=== PATIENT | male | born 1990 | race Caucasian/White ===

== ENCOUNTER → 2018-02-08 17:51 | Outpatient (CLI) | payer OTHER, SELFPAY ==
[2018-02-08 20:20] LABS: M R Staph aureus DNA By PCR Negative (Negative); Probe Check PASS; Specimen Processing Control PASS; Staph aureus DNA By PCR POSITIVE (Negative)
== END ==
PROVIDERS: Visit Provider Podiatrist
DX: L60.0 Ingrowing nail (principal)
CPT/HCPCS: 87640

== ENCOUNTER → 2018-08-17 12:17 | Outpatient (CLI) | payer OTHER, SELFPAY ==
[2015-08-04 17:19] VITALS: BMI 37.6
[2018-08-17 16:01] LABS: Hemoglobin A1c 5.4 % (4.2-6.3)
[2018-08-17 16:17] LABS: BUN 12 mg/dL (7-18); Creatinine, Serum 0.89 mg/dL (0.70-1.30); EST Glomerular Filtration Rate 108 mL/min (>60); Glucose 78 mg/dL (74-106)
[2018-08-17 16:18] LABS: Anion Gap 9 (5-15); BUN/Creat Ratio 13.5 RATIO (10-20); Calcium,Total 9.2 mg/dL (8.5-10.1); Chloride 107 mmol/L (98-107); Cholesterol 206 mg/dL (200); Est Glom Filt Rate - Afr Amer 131 mL/min (>60); High Density Lipoprotein 35 mg/dL; Potassium 4.5 mmol/L (3.5-5.1); Sodium Level 143 mmol/L (136-145); Thyroid Stim Hormone (TSH) 1.84 uIU/mL (0.358-3.74); Triglycerides 112 mg/dL; Very Low Density Lipoprotein 22 mg/dL (5-40)
== END ==
PROVIDERS: Family Provider Family Medicine; PCP Family Medicine; Visit Provider Family Medicine
DX: I10 Essential (primary) hypertension (principal)
CPT/HCPCS: 36415; 80048; 80061; 83036; 84403; 84443

== ENCOUNTER → 2018-08-29 12:12 | Outpatient (CLI) | payer OTHER, SELFPAY ==
[2015-08-04 17:19] VITALS: BMI 37.6
--- OUTSIDE RECORDS SUMMARY | 2018-12-01 02:42 | XMS RPT_ITS ---
:1990 Author Organization [facility] Care Team Providers Name Role Phone Norm Obando Attending Unavailable Norm Obando Primary Care Unavailable Zhang Young Attending Unavailable Jeromy Lei Primary Care Unavailable Zhang Young Referring Unavailable Norm Obando Attending Unavailable Norm Obando Primary Care Unavailable Norm Obando Primary Care Unavailable Daniel Park Attending Unavailable PROBLEMS PROBLEMS DATE TYPE CONDITION / CODE ATTENDING STATUS SOURCE 08/17/2018 Unknown I10 - Essential Norm Obando Active [facility] (primary) [facility] hypertension / Hospital I10(ICD-10) Repository 02/09/2018 Unknown L60.0 - Ingrowing Zhang Young Active [facility] nail / Community L60.0(ICD-10) Hospital Repository PROCEDURES PROCEDURES No Procedure Records FoundRESULTS RESULTS EMERGENCY DEPARTMENT Observed: 09/22/2018 Status: F Source: [place] SUMMARY 8:36 PM [facility] REPOSITORY [facility] Medical Records Department [address] [place] [address] Emergency Department Summary 09/22/18 1815 MR#: [id number] Acct: [id number] Name: DEVAN CAMERON Rep #: [id number] : 1990 27 From: Daniel Park MD PCP: Norm Obando MD Status: REG ER - ER Visit Summary Date of Service: 09/22/18 Chief Complaint: Fever, rigors and weakness History of Present Illness: The patient is a 27 M who had URI symptoms approximately 2 weeks ago. He states he had a phlegmy cough . Today he presents with fever, rigors and generalized weakness. He complains of bifrontal headache. He denies photophobia, neck pain or neck stiffness. He denies any ocular, auditory or visual symptoms. He did state transient blurred vision. He denies sore throat. He denies chest pain. He denies dyspnea on exertion. He denies nausea, vomiting diarrhea. He denies urologic symptoms. He has not noted a rash. He does complain of generalized weakness. Review of systems otherwise negative. Physical Examination: Vital signs noted and marked for blood pressure 184/107, temperature 102.1 and heart rate of 127. He is not hypoxic nor is he tachypneic. Head is atraumatic normocephalic. Pupils are equal round reactive. Extraocular muscles are intact. TMs are pearly white with landmarks noted. Nares patent with no drainage. Posterior pharynx without erythema or exudate. Uvula is midline. Mucosa is dry there is no dysphonia or dysphasia. Trachea is midline. There is no stridor with auscultation of the neck. Heart is rapid and regular without murmur, gallop or rub. S1 and S2 are normal. Lungs are clear to auscultation with good movement of air bilaterally. Abdomen is soft nontender. Bowel sounds are present normal. There is no hepatosplenomegaly. There are no dermatologic lesions nor is a rash noted. Patient is alert and oriented 3. Motor is 5 over 5. Sensory is intact. DTRs are symmetric with no clonus or Babinski sign. Cranial 2 through 12 are intact. Cerebellar testing is normal. Neck is supple. Test Results: Two-view chest x-ray interpreted by me as negative. White count is 12.0 thousand with 87 segs no bands. Electro panels marked for CO2 of 17 with an anion gap of 9. Lactate is normal at 1.4. Emergency Department Course and Treatment: With report of cough fever rigors appropriate blood work was obtained as well as chest x-ray, influenza screen and he was treated with Tylenol for his fever. Since he is clinically dehydrated a liter of normal saline was ordered. Patient received 650 mg of Tylenol for his fever. He still complained of headache. He received 50 mg Toradol. He still complains of headache. Influenza screen was negative. Treatment Plan: Symptomatic and appropriate home-going instructions Disposition: Discharge to home Impression: 1. Fever secondary to acute viral syndrome 2. Viral cephalgia 3. Mild dehydration 4. Sinus tachycardia documented on monitor This note was generated with IncreaseCard dictation software. It may contain incorrect words, spelling, and punctuation that were not noted in review of the chart prior to signing ED Disposition - Plan for ED Patient: Disposition: Home or Assisted Living Chief Complaint: Fever Instructions: ED Viral Syndrome Referrals: Norm Obando MD [Primary Care Provider] - 3-5 Days if not improving What to do if you have Problems For any increased pain, shortness of breath, bleeding, nausea or vomiting, chest pain, or any unexpected problems, contact your Primary Care Provider. Call [facility] ([phone]) or report to the closest Emergency Room. Call 911 if necessary. 09/22/182035 <Electronically signed by Daniel Park MD> Date Daniel Park MD Cosigner Signature (If Indicated): Date CC: Norm Obando MD CBC W/DIFF, AUTOMATED Collected: 09/22/2018 Status: F Source: [place] 6:15 PM [facility] REPOSITORY TYPE CODE TESTS RESULT OUT OF RANGE REFERENCE UNITS LAB L100.1000 4.4-11.0 K/mm3 High WBC 12.0 LAB L100.1200 4.6-6.2 M/mm3 Normal RBC 5.82 LAB L100.1300 13.0-16.5 g/dl Normal HGB 16.2 LAB L100.1400 40-54 % Normal HCT 46.8 LAB L100.1500 80-94 fL Normal MCV 80.4 LAB L100.1600 27.0-32.0 pg Normal MCH 27.8 LAB L100.1700 32-36 g/gl Normal MCHC 34.6 LAB L100.1810 11.6-14.6 % Normal RDW CV 13.5 LAB L100.1820 35.1-43.9 fl Normal RDW SD 39.0 LAB L100.1900 150-450 K/mm3 Normal PLT 301 LAB L100.2000 6.2-12.0 fl Normal MPV 9.1 LAB L100.2100 47-70 % High NEUT% 87.2 LAB L100.2200 19-41 % Low LY% 6.4 LAB L100.2300 0-10 % Normal MONO% 5.2 LAB L100.2400 0-5 % Normal EO% 0.7 LAB L100.2500 0-1 % Normal BASO% 0.2 LAB L100.2550 0.0-0.9 % Normal IM GRAN % 0.300 Result Comment: IG% - Immature Granulocytes (promyelocytes, myelocytes and metamyelocytes) > 1% indicates that a LEFT SHIFT is Present. LAB L100.2620 2.0-7.7 X10 3/uL High Absolute Neut 10.5 LAB L100.2720 0.83-4.51 X10 3/ul Low Absolute Lymph 0.77 Performed By: #### L100.0100 #### [facility] [place], [place], [id number] LACTIC ACID Collected: 09/22/2018 Status: F Source: [place] 6:15 PM [facility] REPOSITORY Order Comment: Yes/No query for Sepsis Lactate Rule Y TYPE CODE TESTS RESULT OUT OF RANGE REFERENCE UNITS LAB L503.6005 0.4-2.0 mmol/L Normal LACTIC ACID 1.4 Performed By: #### L503.6005 #### [facility] [address] [place], [address] BASIC METABOLIC Collected: 09/22/2018 Status: F Source: [place] PROFILE (BMP) 6:15 PM [facility] REPOSITORY TYPE CODE TESTS RESULT OUT OF RANGE REFERENCE UNITS LAB L501.0100 74-106 mg/dL Normal GLU 97 Result Comment: Please note revised GLUCOSE reference range effective 2017. LAB L501.1000 7-18 mg/dL Normal BUN 12 LAB L501.1100 0.70-1.30 mg/dL Normal CREAT,SERUM 0.96 Result Comment: The validity of the calculated GFR AND GFRAA in patients over 70 years has not been determined. Clinical correlation is essential. LAB L501.1110 >60 mL/min Normal EST GFR 99 Result Comment: Non- GFR Calc LAB L501.1115 >60 mL/min Normal EST GFR - AA 119 Result Comment: GFR Calc LAB L501.1255 ml/min Normal Estimated CRCL 119.34 LAB L501.1300 10-20 RATIO BUN/CRE Normal 12.4 LAB L501.2200 8.5-10 mg/dL Low .1 CA 8.2 LAB L501.5300 136-14 mmol/L Low 5 NA 135 LAB L501.5600 3.5-5. mmol/L 1 K Normal 4.7 LAB L501.5900 98-107 mmol/L High CL 109 LAB L501.6100 21.0-3 mmol/L Low 2.0 CO2 17.0 LAB L501.6200 5-15 GAP Normal 9 Performed By: #### L500.2500 #### [facility] [address] [place], [address] CHEST PA AND LATERAL Observed: 09/22/2018 Status: F Source: [facility] 5[facility] Imaging Services [address] [place] [address] Chest PA and Lateral MR#: [id number] Acct: [id number] Name: DEVAN CAMERON Rep #: [id number] : 1990 M 27 From: Priyanka Culver MD PCP: Norm Obando MD Status: REG ER Study: Chest PA and Lateral Date of Exam: 09/22/18 Exam# [id number] Ordering Dr: Daniel Park MD STUDY: X-RAY CHEST REASON FOR EXAM: Male, 27 years old. Fever and cough TECHNIQUE: 2 views COMPARISON: None. FINDINGS: The lungs are clear and expanded. There is no demonstrated pleural abnormality. Normal size heart. Normal mediastinum and george. Normal visualized pulmonary arteries. Normal visualized aortic arch and descending thoracic aorta. Normal visualized thoracic spine. Normal visualized ribs, clavicles, and shoulders. There is no demonstrated abnormality of the visualized soft tissue structures of the upper abdomen. RAD/Chest PA and Lateral IMPRESSION: Normal x-ray examination of the chest. Electronically Signed: Priyanka Culver MD at 18:53 EST , Service support , CC: Norm Obando MD; Daniel Park MD Smoke Control Supervisor: Signed Observed: 09/22/2018 Status: F Source: [place] INFLUENZA A+B (RAPID 5:50 PM [facility] JANEEN) REPOSITORY Has pt arrived? Y FLU A/B Rapid Negative test results should be confirmed with FLU PANEL MOLECULAR if indicated. Influenza Ag, Direct Presumptive NEGATIVE for Influenza A/B Antigen (See Note) Performed By: #### M101.0101 #### [facility] [address] [place], [address] TESTOSTERONE, SERUM TOTAL Collected: 08/29/2018 Status: F Source: [place] 12:23 PM [facility] REPOSITORY TYPE CODE TESTS RESULT OUT OF REFERENCE UNITS RANGE LAB L509.3000 ng/dL Testosterone Normal 398.84 Result Comment: NORMAL REFERENCE RANGES MALE AGE <50 123.06 - 813.86 ng/dL MALE AGE >50 89.98 - 780.10 ng/dL FEMALE PREMENOPAUSE AGE 21 - 60 9.01 - 47.94 ng/dL FEMALE POSTMENOPAUSE AGE 45 - 89 <7.00 - 45.62 ng/dL REFERENCE RANGE AND METHODOLOGY CHANGED 09/01/2017 Performed By: #### L509.3000 #### [facility] [address] [place], [place], [address] HEMOGLOBIN A1C Collected: 08/17/2018 Status: F Source: [place] 12:19 PM [facility] REPOSITORY TYPE CODE TESTS RESULT OUT OF RANGE REFERENCE UNITS LAB L501.9985 4.2-6.3 % Normal HGB A1C 5.4 Performed By: #### L501.9985 #### [facility] [address] [place], [address] TESTOSTERONE, SERUM TOTAL Collected: 08/17/2018 Status: F Source: [place] 12:19 PM [facility] REPOSITORY TYPE CODE TESTS RESULT OUT OF REFERENCE UNITS RANGE LAB L509.3000 ng/dL Testosterone Normal 141.38 Result Comment: NORMAL REFERENCE RANGES MALE AGE <50 123.06 - 813.86 ng/dL MALE AGE >50 89.98 - 780.10 ng/dL FEMALE PREMENOPAUSE AGE 21 - 60 9.01 - 47.94 ng/dL FEMALE POSTMENOPAUSE AGE 45 - 89 <7.00 - 45.62 ng/dL REFERENCE RANGE AND METHODOLOGY CHANGED 09/01/2017 Performed By: #### L509.3000 #### [facility] [address] [place], [address] BASIC METABOLIC Collected: 08/17/2018 Status: F Source: [place] PROFILE (BMP) 12:19 PM [facility] REPOSITORY TYPE CODE TESTS RESULT OUT OF RANGE REFERENCE UNITS LAB L501.0100 74-106 mg/dL Normal GLU 78 Result Comment: Please note revised GLUCOSE reference range effective 2017. LAB L501.1000 7-18 mg/dL Normal BUN 12 LAB L501.1100 0.70-1.30 mg/dL Normal CREAT,SERUM 0.89 Result Comment: The validity of the calculated GFR AND GFRAA in patients over 70 years has not been determined. Clinical correlation is essential. LAB L501.1110 >60 mL/min Normal EST GFR 108 Result Comment: Non- GFR Calc LAB L501.1115 >60 mL/min Normal EST GFR - AA 131 Result Comment: GFR Calc LAB L501.1300 10-20 RATIO Normal BUN/CRE 13.5 LAB L501.2200 8.5-10.1 mg/dL CA Normal 9.2 LAB L501.5300 136-145 mmol/L NA Normal 143 LAB L501.5600 3.5-5.1 mmol/L K Normal 4.5 LAB L501.5900 98-107 mmol/L CL Normal 107 LAB L501.6100 21.0-32.0 mmol/L Normal CO2 27.0 LAB L501.6200 5-15 Normal GAP 9 Performed By: #### L500.2500, L500.4100, L501.9520 #### [facility] [address] [place], [place], [address] LIPID PROFILE Collected: 08/17/2018 Status: F Source: [place] 12:19 PM [facility] REPOSITORY TYPE CODE TESTS RESULT OUT OF RANGE REFERENCE UNITS LAB L501.4900 200 mg/dL High CHOL 206 Result Comment: <200 mg/dL Desirable 200-240 mg/dL Borderline >240 mg/dL High Risk LAB L501.5000 mg/dL Normal TRIG 112 Result Comment: The drugs N-Acetylcysteine and Metamizole may falsely depress this assay. Serum Triglycerides Reference Interval Normal <150 mg/dL Borderline high 150 - 199 mg/dL High 200 - 499 mg/dL Very High > or = 500 mg/dL LAB L501.6400 mg/dL Low HDL 35 Result Comment: The drugs N-Acetylcysteine and Metamizole may falsely depress this assay. Reference Range HDL <40 mg/dL Low HDL Cholesterol HDL >or= 60 mg/dL High HDL Cholesterol LAB L501.6500 0-130 mg/dL High LDL 149 LAB L501.6600 5-40 mg/dL Normal VLDL 22 Performed By: #### L500.2500, L500.4100, L501.9520 #### [facility] [address] [place], [address] THYROID STIM HORMONE Collected: 08/17/2018 Status: F Source: [place] (TSH) 12:19 PM [facility] REPOSITORY TYPE CODE TESTS RESULT OUT OF RANGE REFERENCE UNITS LAB L501.9520 0.358-3.74 uIU/mL Normal TSH 1.84 Performed By: #### L500.2500, L500.4100, L501.9520 #### [facility] [address] [place], [address] MRSA WOUND DNA BY Collected: 02/08/2018 Status: F Source: [place] PCR 2:45 PM [facility] REPOSITORY Order Comment: Specimen Source? L 1ST TOE TIBIAL BOARDER TYPE CODE TESTS RESULT OUT OF RANGE REFERENCE UNITS LAB L8200.1100 Negative Normal MRSA Negative RESULT LAB L8200.1150 Negative High SA RESULT POSITIVE Performed By: #### L8200.1075 #### [facility] [address] [place], [address] ALLERGIES ALLERGIES DATE TYPE / CODE NAME / CODE REACTION SEVERITY SOURCE 08/04/2015 Drug No Known Unknown [facility] Allergy/4160 Allergies/F00 Hospital [address]409(SNOMED [id number](RXNOR Repository CT) M) ENCOUNTERS ENCOUNTERS ADMIT/DISCHARGE ACCOUNT ADMITTING ENCOUNTER LOCATION SOURCE NUMBER CLASS 09/22/2018/ [id number] Emergency Michelle Michelle 9 2 [facility] ing:ED Repository 08/29/2018 [id number] Ambulatory [facility] ing:MFPLAB Repository 08/17/2018 [id number] Ambulatory [facility] 8 [facility] ing:MFPLAB Repository 02/08/2018 [id number] Ambulatory [facility] 8 [facility] ing:LABSPEC Repository PAYERS PAYERS ENCOUNTER GUARANTOR PAYER SUBSCRIBER SOURCE 09/22/[address] [facility] DEVAN PRINCESS [facility] [id number] Insurance:HEALTH PLAN CARTERDOB: [place] OF [address] Number: Repository [id number]: [id number] Date: () [facility] [place] [place] [address]IR: 09/22/2018 Secondary NOT GIVENUNK Michelle Insurance:SELF [facility]: Effective Repository Date:2018-09-22 08/29/[address] [facility] DEVAN FOY [facility] [id number] Insurance:HEALTH PLAN CARTERDOB: [facility] [place] OF [address] Number: Repository [id number]: [id number] Date: () [facility], [place] [address]HF: 08/29/2018 Secondary NOT GIVENUNK [facility] Insurance:SELF PAY [facility] Number: Effective Repository Date:2018-08-29 08/17/[address] [facility] DEVAN FOY Michelle [id number] Insurance:HEALTH PLAN CARTERDOB: [facility] OF [address] Number: Repository [id number]: [id number] Date: () [facility], [place] [address]KR: 08/17/2018 Secondary NOT GIVENUNK [facility] Insurance:SELF PAY [facility] Number: Effective Repository Date:2018-08-17 02/08/2018 Devan FOY Michelle [id number] Insurance:HEALTH PLAN CARTERDOB: [facility] OF [address] Number: Repository [id number]: [id number] Date: () [place] [id number]: 02/08/2018 Secondary NOT GIVENUNK Michelle Insurance:SELF PAY [facility] Number: Effective Repository Date:2018-02-08
== END ==
PROVIDERS: Family Provider Family Medicine; PCP Family Medicine; Visit Provider Family Medicine
DX: Z30.40 Encounter for surveillance of contraceptives, unspecified (principal)
CPT/HCPCS: 36415; 84403

== ENCOUNTER 2018-09-22 17:33 | Emergency (ER) | payer OTHER, SELFPAY ==
[2018-09-22] VITALS (7 sets, daily range): BP systolic 120–184; BP diastolic 85–107; PULSE 110–127; RESP 16–20; TEMP 37.7–38.9; O2SAT 96–98; BMI 40.8
--- NOTE | 2018-09-22 18:15 | ED.VISSUMM ---
- ER Visit Summary Date of Service: 09/22/18 Chief Complaint: Fever, rigors and weakness History of Present Illness: The patient is a 27 M who had URI symptoms approximately 2 weeks ago. He states he had a phlegmy cough . Today he presents with fever, rigors and generalized weakness. He complains of bifrontal headache. He denies photophobia, neck pain or neck stiffness. He denies any ocular, auditory or visual symptoms. He did state transient blurred vision. He denies sore throat. He denies chest pain. He denies dyspnea on exertion. He denies nausea, vomiting diarrhea. He denies urologic symptoms. He has not noted a rash. He does complain of generalized weakness. Review of systems otherwise negative. Physical Examination: Vital signs noted and marked for blood pressure 184/107, temperature 102.1 and heart rate of 127. He is not hypoxic nor is he tachypneic. Head is atraumatic normocephalic. Pupils are equal round reactive. Extraocular muscles are intact. TMs are pearly white with landmarks noted. Nares patent with no drainage. Posterior pharynx without erythema or exudate. Uvula is midline. Mucosa is dry there is no dysphonia or dysphasia. Trachea is midline. There is no stridor with auscultation of the neck. Heart is rapid and regular without murmur, gallop or rub. S1 and S2 are normal. Lungs are clear to auscultation with good movement of air bilaterally. Abdomen is soft nontender. Bowel sounds are present normal. There is no hepatosplenomegaly. There are no dermatologic lesions nor is a rash noted. Patient is alert and oriented ?3. Motor is 5 over 5. Sensory is intact. DTRs are symmetric with no clonus or Babinski sign. Cranial 2 through 12 are intact. Cerebellar testing is normal. Neck is supple. Test Results: Two-view chest x-ray interpreted by mt as negative. White count is 12.0 thousand with 87 segs no bands. Electro panels marked for CO2 of 17 with an anion gap of 9. Lactate is normal at 1.4. Emergency Department Course and Treatment: With report of cough fever rigors appropriate blood work was obtained as well as chest x-ray, influenza screen and he was treated with Tylenol for his fever. Since he is clinically dehydrated a liter of normal saline was ordered. Patient received 650 mg of Tylenol for his fever. He still complained of headache. He received 50 mg Toradol. He still complains of headache. Influenza screen was negative. Treatment Plan: Symptomatic and appropriate home-going instructions Disposition: Discharge to home Impression: 1. Fever secondary to acute viral syndrome 2. Viral cephalgia 3. Mild dehydration 4. Sinus tachycardia documented on monitor This note was generated with Valopaa dictation software. It may contain incorrect words, spelling, and punctuation that were not noted in review of the chart prior to signing ED Disposition - Plan for ED Patient: Disposition: Home or Assisted Living Chief Complaint: Fever Instructions: ED Viral Syndrome Referrals: Norm Obando MD [Primary Care Provider] - 3-5 Days if not improving
--- NOTE | 2018-09-22 18:18 | ED.DCSUM_ITS ---
- ER Visit Summary Date of Service: 09/22/18 Chief Complaint: Fever, rigors and weakness History of Present Illness: The patient is a 27 M who had URI symptoms approximately 2 weeks ago. He states he had a phlegmy cough . Today he presents with fever, rigors and generalized weakness. He complains of bifrontal headache. He denies photophobia, neck pain or neck stiffness. He denies any ocular, auditory or visual symptoms. He did state transient blurred vision. He denies sore throat. He denies chest pain. He denies dyspnea on exertion. He denies nausea, vomiting diarrhea. He denies urologic symptoms. He has not noted a rash. He does complain of generalized weakness. Review of systems ot herwise negative. Physical Examination: Vital signs noted and marked for blood pressure 184/107, temperature 102.1 and heart rate of 127. He is not hypoxic nor is he tachypneic. Head is atraumatic normocephalic. Pupils are equal round reactive. Extraocular muscles are intact. TMs are pearly white with landmarks noted. Nares patent with no drainage. Posterior pharynx without erythema or exudate. Uvula is midline. Mucosa is dry there is no dysphonia or dysphasia. Trachea is midline. There is no stridor with auscultation of the neck. Heart is rapid and regular without murmur, gallop or rub. S1 and S2 are normal. Lungs are clear to auscultation with good movement of air bilaterally. Abdomen is soft nontender. Bowel sounds are present normal. There is no hepatosplenomegaly. There are no dermatologic lesions nor is a rash noted. Patient is alert and oriented ?3. Motor is 5 over 5. Sensory is intact. DTRs are symmetric with no clonus or Babinski sign. Cranial 2 through 12 are intact. Cerebellar testing is normal. Neck is supple. Test Results: Two-view chest x-ray interpreted by me as negative. White count is 12.0 thousand with 87 segs no bands. Electro panels marked for CO2 of 17 with an anion gap of 9. Lactate is normal at 1.4. Emergency Department Course and Treatment: With report of cough fever rigors appropriate blood work was obtained as well as chest x-ray, influenza screen and he was treated with Tylenol for his fever. Since he is clinically dehydrated a liter of normal saline was ordered. Patient received 650 mg of Tylenol for his fever. He still complained of headache. He received 50 mg Toradol. He still complains of headache. Influenza screen was negative. Treatment Plan: Symptomatic and appropriate home-going instructions Disposition: Discharge to home Impression: 1. Fever secondary to acute viral syndrome 2. Viral cephalgia 3. Mild dehydration 4. Sinus tachycardia documented on monitor This note was generated with KidAdmit dictation software. It may contain incorrect words, spelling, and punctuation that were not noted in review of the chart prior to signing ED Disposition - Plan for ED Patient: Disposition: Home or Assisted Living Chief Complaint: Fever Instructions: ED Viral Syndrome Referrals: Norm Obando MD [Primary Care Provider] - 3-5 Days if not improving
[2018-09-22] MEDS: Acetaminophen 325 MG Tablet 650 MG PO (18:21)
[2018-09-22] MEDS: 0.9% Normal Saline 1,000 ML 1000 ML IV (18:21)
--- NOTE | 2018-09-22 18:25 | RAD_ITS ---
STUDY: X-RAY CHEST REASON FOR EXAM: Male, 27 years old. Fever and cough TECHNIQUE: 2 views COMPARISON: None. FINDINGS: The lungs are clear and expanded. There is no demonstrated pleural abnormality. Normal size heart. Normal mediastinum and george. Normal visualized pulmonary arteries. Normal visualized aortic arch and descending thoracic aorta. Normal visualized thoracic spine. Normal visualized ribs, clavicles, and shoulders. There is no demonstrated abnormality of the visualized soft tissue structures of the upper abdomen. RAD/Chest PA and Lateral IMPRESSION: Normal x-ray examination of the chest. Electronically Signed: Priyanka Culver MD at 18:53 EST , Service support ,
[2018-09-22 18:28] LABS: Absolute Lymphocyte Count 0.77 X10^3/ul (0.83-4.51); Absolute Neutrophil Count 10.5 X10^3/uL (2.0-7.7); Basophil# 0.02 X10^3/uL; Basophil% 0.2 % (0-1); Eosinophil# 0.09 X10^3/uL; Eosinophils% 0.7 % (0-5); Hematocrit 46.8 % (40-54); Hemoglobin 16.2 g/dl (13.0-16.5); Lymphocyte # 0.77 X10^3/ul (4.0); Lymphocyte % 6.4 % (19-41); Mean Corp Hgb Conc 34.6 g/gl (32-36); Mean Corpuscular Hgb 27.8 pg (27.0-32.0); Mean Corpuscular Volume 80.4 fL (80-94); Mean Platelet Vol. 9.1 fl (6.2-12.0); Monocyte# 0.63 X10^3/uL; Monocyte% 5.2 % (0-10); Neutrophil # 10.49 X10^3/uL (2.7-7.7); Neutrophil % 87.2 % (47-70); Platelet Count 301 K/mm3 (150-450); RBC Distribution Width CV 13.5 % (11.6-14.6); Red Blood Count 5.82 M/mm3 (4.6-6.2)
[2018-09-22 18:32] LABS: POSITIVE COUNT NO; POSITIVE DIFFERENTIAL NO; POSITIVE MORPHOLOGY NO
[2018-09-22 18:50] LABS: Lactic Acid 1.4 mmol/L (0.4-2.0)
[2018-09-22 19:00] LABS: Anion Gap 9 (5-15); BUN 12 mg/dL (7-18); BUN/Creat Ratio 12.4 RATIO (10-20); Calcium,Total 8.2 mg/dL (8.5-10.1); Chloride 109 mmol/L (98-107); Creatinine, Serum 0.96 mg/dL (0.70-1.30); EST Glomerular Filtration Rate 99 mL/min (>60); Est Glom Filt Rate - Afr Amer 119 mL/min (>60); Estimated Creatinine Clearance 119.34 ml/min; Glucose 97 mg/dL (74-106); Potassium 4.7 mmol/L (3.5-5.1); Sodium Level 135 mmol/L (136-145)
[2018-09-22] MEDS: Ketorolac 15 MG/ML Vial IV (19:30)
== END 2018-09-22 20:42 | disposition home or self-care (01) ==
PROVIDERS: Emergency Provider Emergency Medicine; Family Provider Family Medicine; PCP Family Medicine
DX: B34.9 Viral infection, unspecified (principal); R50.9 Fever, unspecified; R51 Headache; E86.0 Dehydration; R00.0 Tachycardia, unspecified; Z87.891 Personal history of nicotine dependence
CPT/HCPCS: 71046; 80048; 83605; 85025; 87804; 96361; 96374; 99284; J7030; A4216

== ENCOUNTER → 2018-12-19 | Outpatient (CLI) | payer OTHER, SELFPAY ==
[2018-09-22 17:34] VITALS: BMI 40.8
[2018-12-19 13:08] LABS: Vitamin D,25 Hydroxy 21.7 ng/mL (29.95-100.01)
== END | disposition home or self-care (01) ==
LOC: MTLAB 09:36
PROVIDERS: Family Provider Family Medicine; PCP Family Medicine; Visit Provider Family Medicine
DX: E29.1 Testicular hypofunction (principal)
CPT/HCPCS: 36415; 82306; 84403

== ENCOUNTER → 2019-04-26 09:11 | Outpatient (CLI) | payer OTHER, SELFPAY ==
[2018-09-22 17:34] VITALS: BMI 40.8
[2019-04-26 10:47] LABS: ALB/GLOB Ratio 0.9 RATIO (0.9-2.4); AST(SGOT) 16 U/L (15-37); Alanine Aminotransfer ALT/SGPT 40 U/L (16-61); Albumin, Serum 3.6 g/dL (3.2-5.0); Alkaline Phosphatase 115 U/L (45-117); Anion Gap 6 (5-15); BUN 10 mg/dL (7-18); BUN/Creat Ratio 9.9 RATIO (10-20); Calcium,Total 8.6 mg/dL (8.5-10.1); Chloride 106 mmol/L (98-107); Cholesterol 170 mg/dL (200); Creatinine, Serum 1.01 mg/dL (0.70-1.30); EST Glomerular Filtration Rate 93 mL/min (>60); Est Glom Filt Rate - Afr Amer 113 mL/min (>60); Globulin 3.9 g/dL (2.2-4.2); Glucose 101 mg/dL (74-106); High Density Lipoprotein 30 mg/dL; PSA,Total- Diagnostic 0.35 ng/mL (0.0-4.0); Potassium 4.1 mmol/L (3.5-5.1); Protein, Total 7.5 g/dL (6.4-8.2); Sodium Level 137 mmol/L (136-145); Triglycerides 102 mg/dL; Very Low Density Lipoprotein 20 mg/dL (5-40)
[2019-04-26 10:58] LABS: Vitamin D,25 Hydroxy 21.5 ng/mL (29.95-100.01)
== END ==
PROVIDERS: Family Provider Family Medicine; PCP Family Medicine; Referring Provider Family Medicine; Visit Provider Family Medicine
DX: E29.1 Testicular hypofunction (principal); E55.9 Vitamin D deficiency, unspecified; K76.0 Fatty (change of) liver, not elsewhere classified
CPT/HCPCS: 36415; 80053; 80061; 82306; 84153; 84403

== ENCOUNTER → 2019-08-02 10:47 | Outpatient (CLI) | payer OTHER, SELFPAY ==
[2018-09-22 17:34] VITALS: BMI 40.8
== END ==
PROVIDERS: Family Provider Family Medicine; PCP Family Medicine; Referring Provider Family Medicine; Visit Provider Family Medicine
DX: E29.1 Testicular hypofunction (principal)
CPT/HCPCS: 36415; 84403

== ENCOUNTER 2019-08-06 17:16 | Emergency (ER) | payer OTHER, SELFPAY ==
[2018-09-22 17:34] VITALS: BMI 40.8
[2019-08-06 17:16] VITALS: BP 182/113; PULSE 113; RESP 18; TEMP 37.8; O2SAT 94; BMI 40.8
--- NOTE | 2019-08-06 17:59 | ED.DCSUM_ITS ---
History of Present Illness Chief Complaint: General Illness Informant: Patient Onset: Today Context: Sudden Onset Timing: Continuous Narrative: Patient is a 28-year-old male with no significant past medical history prese nting with myalgias and chills. Patient states the symptoms started suddenly around 1 PM. He took Tylenol earlier with no relief of his symptoms. Patient states he feels like he has a fever. He states he was feeling well earlier today and yesterday. He does for the past 2 weeks has had cough and sore throat. Patient denies any headache, nausea, vomiting, shortness of breath, difficulty breathing or abdominal pain. He states he feels that he has the flu. Past Medical History - Allergies and Home Meds Allergies/Adverse Reactions: Allergies No Known Allergies Allergy (Verified 08/06/19 17:18) Primary Care Physician: Norm Obando MD [Primary Care Provider] - Past Medical History: None Surgical History: noncontributory Lives: Spouse/ Significant Other Smoking Status: Never smoker Review of Systems General: Reports: Chills, Fever, Malaise. Denies: Sweats Eyes: Denies: Visual changes - bilaterally, Diplopia ENT: Denies: Rhinorrhea, Sore throat Cardiovascular: Denies: Chest pain, Palpitations Respiratory: Reports: Cough. Denies: Dyspnea, Sputum, Dyspnea on exertion Gastrointestinal: Denies: Abdominal pain, Nausea, Vomiting, Diarrhea, Melena, Hematochezia Genitourinary: Denies: Dysuria, Hematuria, Frequency Musculoskeletal: Reports: Myalgias. Denies: Back pain, Extremity Pain Skin: Denies: Rash, Wounds Neurological: Denies: Headache, Weakness, Numbness Physical Exam Vital Signs/Narrative: Vital Signs Temp Pulse Resp BP Pulse Ox 08/06/19 17:16 100.1 F H 113 H 18 182/113 H 94 Inital Vital Signs reviewed: Yes General: Well nourished, Well developed, No Acute Distress Head: Normocephalic, Atraumatic Eyes: Perrl, EOMI ENT: Moist mucous membranes, No rhinorrhea Neck: Supple, Nontender Cardiovascular: Regular rate, Regular rhythm, No murmurs Respiratory: No distress, CTA bilaterally, Chest nontender Abdomen: Soft, Nontender, Nondistended, Normal bowel sounds Back: Nontender, Normal Inspection Extremities: Nontender, No edema Skin: Normal color, No rash, - - Hot to the touch, sweating Neurological: Alert, Oriented x3, Cranial nerves II-XII grossly intact, Normal Strength, Normal Sensation Psychological: Normal affect, Normal Mood Diagnostic/Tx/Re-eval Clinical Impression(s) from Imaging Studies Chest X-Ray 08/06/19 18:28 IMPRESSION: No interval change. Normal chest. Electronically Signed: Reginaldo Rodríguez MD at 19:00 EST , Service support , Rapid influenza?negative - Medical Decision Making Patient evaluated for sudden onset of myalgias, chills and fever. He appears nontoxic and in no acute distress. Patient is given Motrin for fever in the emergency room. He is initially hypertensive and tachycardic as well as a temperature of 100.1. He is otherwise well-appearing. He is a nonfocal exam. He has not no abnormal lung sounds and has no urinary or GI symptoms. Chest x- ray is obtained as he did have a cough for the past 2 weeks. This does not show any acute infiltrate. Flu swab is negative. Likely patient has a viral syndrome that is causing his symptoms. Patient is offered blood work and fluids however he declined stating he would like to just go home at this time. He does not have associated chest pain. I do not suspect myocarditis. He does not have meningeal signs. He will return should his symptoms worsen. He is encouraged to follow-up with his primary care doctor. Patient is counseled on signs and symptoms requiring return to the emergency room. Patient verbalizes agreement and understand this plan. Patient discharged home in stable and improved condition. ED Disposition - Plan for ED Patient: Disposition: Home or Assisted Living Diagnosis: Flu-like symptoms Instructions: VIRAL SYNDROME (Adult) Referrals: Norm Obando MD [Primary Care Provider] - Additional Instructions: Continue to alternate ibuprofen and Tylenol for your symptoms. Return to emergency room if you develop worsening symptoms including headache, rash, abdominal pain or difficulty breathing. At this time I suspect you have a viral illness that is causing your symptoms. Please follow-up with your primary care doctor midweek.
[2019-08-06] MEDS: Ibuprofen 600 MG Tablet PO (18:13)
--- NOTE | 2019-08-06 18:28 | RAD_ITS ---
STUDY: X-RAY CHEST REASON FOR EXAM: Male, 28 years old. Fever with body aches and fatigue. TECHNIQUE: Frontal and lateral views of the chest. COMPARISON: September 22, 2018 FINDINGS: The lungs are clear and expanded. There is no demonstrated pleural abnormality. Normal size heart. Normal mediastinum and george. Normal visualized pulmonary arteries. Normal visualized aortic arch and descending thoracic aorta. Normal visualized thoracic spine. Normal visualized ribs, clavicles, and shoulders. There is no demonstrated abnormality of the visualized soft tissue structures of the upper abdomen. RAD/Chest PA and Lateral IMPRESSION: No interval change. Normal chest. Electronically Signed: Reginaldo Rodríguez MD at 19:00 EST , Service support ,
[2019-08-06 20:10] VITALS: BP 139/63; PULSE 92; RESP 18; O2SAT 96
== END 2019-08-06 20:12 | disposition home or self-care (01) ==
PROVIDERS: Emergency Provider Emergency Medicine; Family Provider Family Medicine; PCP Family Medicine
DX: B34.9 Viral infection, unspecified (principal)
CPT/HCPCS: 71046; 87804; 99284

== ENCOUNTER 2019-09-10 22:31 | Emergency (ER) | payer OTHER, SELFPAY ==
[2019-09-10 22:31] VITALS: BP 186/108; PULSE 90; RESP 16; TEMP 36.8; O2SAT 95; BMI 37.6
[2019-09-10] MEDS: predniSONE 20 MG Tablet 60 MG PO (23:03)
[2019-09-10] MEDS: Famotidine 200 MG/20 ML MDV 20 MG in 0.9% Normal Saline (Pres. free 8 ML 300 MG IV (23:03)
[2019-09-10 23:33] VITALS: PULSE 85; RESP 16; O2SAT 94
--- NOTE | 2019-09-11 | ED.DCSUM_ITS ---
- ER Visit Summary Date of Service: 09/11/19 Chief Complaint: Rash History of Present Illness: The patient is a 28 M who presents with a rash as well as swelling. Prior to arrival, he had a fairly rapid onset of a itchy rash. It started with right upper lip swelling and then progressed to eyelid swelling and a rash on his neck. He never had anything like this before. He had been working out in the garage and spraying his garage door with lubricant, but he has done this before many times. He denies any new foods, new medicines, recent procedures, travel, new topical products, cleaning products, or any other new exposures. He only takes testosterone, and has been on this for years. He does not take CHRIS inhibitor's. He had some tightness in his throat as well. No GI symptoms otherwise. No neurologic symptoms. No history of anaphylaxis. He took Benadryl prior to arrival. He was also treated with Pepcid and prednisone in triage. At the time I saw him, his rash has resolved. No further itchiness. He does have some mild swelling to his right upper lip and eyelids. Physical Examination: Afebrile, hypertensive. Alert and oriented. No acute distress. Patient has mild swelling to his left upper lip and bilateral eyelids. Airway is intact. Voice is normal. Breathing nonlabored and clear. No sign of rash. Abdomen soft. Test Results: None indicated Emergency Department Course and Treatment: Patient took Benadryl. He also had Pepcid and prednisone in triage. By the time I saw him, about an hour after treatment, his rash had resolved. He had some mild swelling but no other associated symptoms. No further respiratory, GI, or RESPIRATORY THERAPY ASSISTANT symptoms. Patient denies trauma, family history. Denies any new contacts. I am not sure what caused his reaction. Will prescribe Benadryl, Pepcid, and prednisone for 5 days. He was also given an EpiPen and educated about use. Follow-up with primary care for recheck. Return right away for any complications or further problems. Treatment Plan: As above Disposition: Discharge Impression: 1. Urticaria This note was generated with [email or web address]ation software. It may contain incorrect words, spelling, and punctuation that were not noted in review of the chart prior to signing ED Disposition - Plan for ED Patient: Referrals: Norm Obando MD [Primary Care Provider] -
--- NOTE | 2019-09-11 00:04 | ED.DEP ---
ED Disposition - Plan for ED Patient: Instructions: ALLERGIC REACTION, Other (Local) Prescriptions: DiphenhydrAMINE [Benadryl] 25 mg PO TID 5 Days #15 cap Prescription Printed Epi Pen (for allergic rxn) 0.3 mg IM X1 #2 syringe Prescription Printed Famotidine [Pepcid] 20 mg PO BID 5 Days #10 tab Prescription Printed Prednisone 60 mg PO DAILY 4 Days #24 tab Prescription Printed Referrals: Norm Obando MD [Primary Care Provider] -
[2019-09-11 00:06] VITALS: BP 176/103
[2019-09-11 00:27] VITALS: BP 167/91; PULSE 90; RESP 18; O2SAT 95
== END 2019-09-11 00:27 | disposition home or self-care (01) ==
PROVIDERS: Emergency Provider Emergency Medicine; Family Provider Family Medicine; PCP Family Medicine
DX: L50.0 Allergic urticaria (principal)
CPT/HCPCS: 96365; 99283; J3490

== ENCOUNTER → 2020-08-18 14:44 | Outpatient (CLI) | payer OTHER, SELFPAY ==
[2020-08-18 13:12] VITALS: BMI 43.6
== END ==
PROVIDERS: PCP Family Medicine; Referring Provider Physician Assistant Medical; Visit Provider Physician Assistant Medical
DX: Z20.828 Contact with and (suspected) exposure to other viral communicable diseases (principal)
CPT/HCPCS: 87635; U0003

== ENCOUNTER → 2020-12-06 09:55 | Outpatient (CLI) | payer OTHER, SELFPAY ==
[2020-08-18 13:12] VITALS: BMI 43.6
[2020-12-06 12:15] LABS: Anion Gap 8 (5-15); BUN 14 mg/dL (7-18); BUN/Creat Ratio 15.4 RATIO (10-20); Calcium,Total 9.1 mg/dL (8.5-10.1); Chloride 106 mmol/L (98-107); Cholesterol 167 mg/dL (200); Creatinine, Serum 0.91 mg/dL (0.70-1.30); EST Glomerular Filtration Rate 104 mL/min (>60); Est Glom Filt Rate - Afr Amer 126 mL/min (>60); Glucose 95 mg/dL (74-106); High Density Lipoprotein 35 mg/dL; Potassium 4.2 mmol/L (3.5-5.1); Sodium Level 141 mmol/L (136-145); Triglycerides 92 mg/dL; Very Low Density Lipoprotein 18 mg/dL (5-40)
== END ==
PROVIDERS: PCP Family Medicine; Referring Provider Family Medicine; Visit Provider Family Medicine
DX: E29.1 Testicular hypofunction (principal); E66.9 Obesity, unspecified
CPT/HCPCS: 36415; 80048; 80061; 84403

== ENCOUNTER 2021-01-25 01:25 | Emergency (ER) | payer OTHER, SELFPAY ==
[2020-08-18 13:12] VITALS: BMI 43.6
[2021-01-25 01:26] VITALS: BP 159/104; PULSE 79; RESP 16; TEMP 36.4; O2SAT 98; BMI 42.9
[2021-01-25 01:29] VITALS: BP 159/104; PULSE 79; RESP 16; TEMP 36.4; O2SAT 98
--- NOTE | 2021-01-25 01:42 | EDS_ITS ---
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 No recent major allergy symptoms although he has been occasionally using Pitkin nasal spray when he does get those. No recent URI, fevers, foreign body or injury/trauma. No symptoms of anemia. Has had minor nosebleeds from the right side in the past. ROS ROS ED Constitutional Constitutional ED: Denies chills or fever(s) ENT ENT ED: Reports epistaxis; Denies foreign body in nose, headache(s) or sore throat Gastrointestinal Gastrointestinal: Denies diarrhea, nausea or vomiting Integumentary Denies abscess or rash Neurologic Neurologic: Denies headache(s), paresthesias or weakness PFSH PFSH Medical History (Updated 01/25/21 @ 02:[address] Micheal Dudley MD) Hypertension Home Medications amlodipine [Norvasc] 5 mg PO DAILY 01/25/21 [History Last Taken Unknown] Allergy/AdvReac Type Severity Reaction Status Date / Time No Known Allergies Allergy Verified 08/18/20 13:13 Family History (Updated 08/18/20 @ 13:14 by Dot Hylton) Other Heart disease Social History Smoking Status: Former smoker alcohol intake: never EXAM Physical Exam Const Vital Signs: 01/25/21 01:26 01/25/21 01:29 Temperature 97.6 F L 97.6 F L Temperature Source Temporal Oral Pulse Rate 79 79 Respiratory Rate 16 16 Blood Pressure 159/104 H 159/104 H Blood Pressure Mean 122 122 Pulse Ox 98 98 Oxygen Delivery Method Room Air Room Air Positive well nourished and well developed General Appearance ED: well developed and NAD HEENT HEENT Narrative: Patient has a tampon hanging out of his right nostril and there is no active external bleeding. There is mild active bleeding down the posterior oropharynx. The left naris is clear. Airway patent without stridor. Tolerating secretions. normocephalic and atraumatic Eyes PERRL and EOMs intact bilaterally Neck supple and no meningeal signs Resp normal respiratory effort Neuro oriented x3 and CN's II-XII intact bilaterally Sensorium / Orientation: alert Skin Lesions: no lesions Rashes: no rashes MDM MDM MDM Narrative Medical decision making narrative: Patient was discharged home after the treatment below. We discussed reasons to return and ways to care for this at home. His blood pressure is elevated and he should follow-up for reevaluation of that. Unknown if that is related or not, or if the repeated use of Pitkin nasal moisturizer is causing this. I did not cauterize him because it was not clear that the small spot on his septum was the source of bleeding or otherwise. We discussed reasons to return he was comfortable with that plan. Procedures Other Procedures Procedure(s): Epistaxis care: After obtaining Dr. Argueta epistaxis mix from pharmacy, and soaking a nasal pledget with it, I removed the patient's homemade nasal packing along with a very large, long clot, he was able to evacuate the contents of his nasal cavity by blowing, I inserted 1 cc of the medication mix into his right nostril, he inhaled it back into his posterior nasopharynx, and I inserted the cotton pledget along with a nasal clamp. On reexamination after taking a sip of water, there is no blood in the posterior oropharynx and there is no active bleeding anteriorly. He was observed for 15-20 minutes, and on reevaluation after removing the pledget, there is no blood in the nostril bilaterally, no evidence of the site of bleeding except for 1 small area on the septum that possibly was the source but it is not red and there is no clot present. Patient was observed for short period of time and had no recurrent bleeding. Discharge Plan Triage Chief Complaint: Nosebleed ED Provider: Micheal Dudley Dx/Rx/DC Orders Clinical Impression: Acute anterior epistaxis Instructions: ED Epistaxis (Adult) Prescriptions: No Action amlodipine [Norvasc] 5 mg Tablet 5 mg PO DAILY RF: 0 Primary Care Provider: Norm Obando Referrals: Hector Argueta MD [STAFF PHYSICIAN] - As Needed Norm Obando MD [Primary Care Provider] - Activity Restrictions/Additional Instructions: For recurrent bleeding, may do similar technique that we did in the emergency department with oxymetazoline nasal spray. Disposition Disposition: Home, self care
[2021-01-25] MEDS: Mixture 30 ML Bottle 10 ML TOPICAL (02:10)
[2021-01-25 03:09] VITALS: PULSE 68; RESP 15; O2SAT 97
== END 2021-01-25 03:10 | disposition home or self-care (01) ==
PROVIDERS: Emergency Provider Emergency Medicine; PCP Family Medicine
DX: R04.0 Epistaxis (principal); Z87.891 Personal history of nicotine dependence; Z79.899 Other long term (current) drug therapy
CPT/HCPCS: 30905; 99282

== ENCOUNTER → 2022-12-30 | Outpatient (CLI) | payer OTHER, SELFPAY ==
[2022-12-30 15:36] LABS: Absolute Lymphocyte Count 2.21 X10^3/uL (0.83-4.51); Absolute Neutrophil Count 3.9 X10^3/uL (2.0-7.7); Basophil# 0.07 X10^3/uL; Eosinophil# 0.34 X10^3/uL; Eosinophils% 4.7 % (0-5); Hematocrit 46.7 % (40-54); Lymphocyte # 2.21 X10^3/ul (0.83-4.51); Lymphocyte % 30.4 % (19-41); Mean Corp Hgb Conc 32.1 g/dL (32-36); Mean Platelet Vol. 9.4 fl (6.2-12.0); Monocyte# 0.73 X10^3/uL; NRBC Flagged by Analyzer 0 % (0-5); Neutrophil # 3.88 X10^3/uL (2.7-7.7); Neutrophil % 53.3 % (47-70); Platelet Count 303 K/mm3 (150-450); RBC Distribution Width CV 13.2 % (11.6-14.6); RBC Distribution Width SD 40.3 fl (35.1-43.9); Red Blood Count 5.56 M/mm3 (4.6-6.2); White Blood Count 7.3 K/mm3 (4.4-11.0)
[2022-12-30 16:27] LABS: Anion Gap 6 (5-15); BUN 16 mg/dL (7-18); BUN/Creat Ratio 16.6 RATIO (10-20); Calcium,Total 9.4 mg/dL (8.5-10.1); Chloride 111 mmol/L (98-107); Cholesterol 181 mg/dL (200); Creatinine, Serum 0.96 mg/dL (0.70-1.30); EST Glomerular Filtration Rate 96 mL/min (>60); Est Glom Filt Rate - Afr Amer 116 mL/min (>60); Glucose 84 mg/dL (74-106); High Density Lipoprotein 32 mg/dL; Potassium 3.9 mmol/L (3.5-5.1); Sodium Level 139 mmol/L (136-145); Triglycerides 123 mg/dL; Very Low Density Lipoprotein 25 mg/dL (5-40)
== END | disposition home or self-care (01) ==
LOC: MFPLAB 12:03
PROVIDERS: PCP Family Medicine; Visit Provider Family Medicine
DX: E29.1 Testicular hypofunction (principal); I10 Essential (primary) hypertension
CPT/HCPCS: 36415; 80048; 80061; 84403; 85025

== ENCOUNTER → 2023-01-29 | Outpatient (CLI) | payer OTHER, SELFPAY ==
[2023-01-29 12:51] LABS: Hemoglobin A1c 5.2 % (3.8-5.6)
[2023-01-29 12:55] LABS: Thyroid Stim Hormone (TSH) 1.55 uIU/mL (0.358-3.74)
[2023-01-29 15:02] LABS: Vitamin B12 482 pg/mL (211-911); Vitamin D,25 Hydroxy 38.1 ng/mL
== END | disposition home or self-care (01) ==
LOC: BIMLAB 09:40
PROVIDERS: PCP Internal Medicine; Referring Provider Nurse Practitioner Family; Visit Provider Nurse Practitioner Family
DX: R73.09 Other abnormal glucose (principal); G47.10 Hypersomnia, unspecified; E56.9 Vitamin deficiency, unspecified
CPT/HCPCS: 36415; 82306; 82607; 83036; 84443

== ENCOUNTER → 2023-03-02 | Outpatient (CLI) | payer OTHER, SELFPAY | END | disposition home or self-care (01) | LOC: SL 07:57 | PROVIDERS: PCP Nurse Practitioner Family; Referring Provider Nurse Practitioner Family; Visit Provider Nurse Practitioner Family | DX: G47.10 Hypersomnia, unspecified (principal); E56.9 Vitamin deficiency, unspecified | CPT/HCPCS: 95806 ==

== ENCOUNTER 2023-04-10 10:09 | Emergency (ER) | payer OTHER, SELFPAY ==
[2023-04-10 10:11] VITALS: TEMP 35.9; BMI 37.0
[2023-04-10 10:13] VITALS: BP 133/99; PULSE 102; RESP 18; O2SAT 98
--- NOTE | 2023-04-10 10:37 | ED.VIS.GI ---
HPI HPI - GI History of Present Illness Chief Complaint: Diarrhea Informant: patient Abdominal Pain/Flank Pain Onset: Days (4 days) Context: Gradual Onset Timing: Waxes and wanes Narrative Narrative: Patient presents secondary to abdominal cramping with nausea and diarrhea. Patient states that he went to visit his [id number] last Wednesday and she been diagnosed with C. difficile 2 weeks ago. He had noted that he was constipated so took some MiraLAX followed by some stool softeners midweek. On Wednesday he ate a sandwich that did not quite taste right. By Wednesday evening he started having diarrhea and continues to have diarrhea roughly every hour. He denies fever or chills. He has some abdominal cramping. [facility] Medical History Asthma Erectile dysfunction HTN (hypertension) Hypersomnia Hypertension Hypogonadism in male Metabolic syndrome Vitamin deficiency Home Medications lisinopril 20 mg-hydrochlorothiazide 25 mg tablet 1 tab PO DAILY 01/29/23 [History Last Taken Unknown] sildenafil 25 mg tablet 25 mg PO DAILY PRN sexual activity #30 tabs 01/29/23 [Rx Last Taken Unknown] tirzepatide 7.5 mg/0.5 mL subcutaneous pen injector 7.5 mg (0.5 mL) subcut QWEEK #2 mL 03/12/23 [Rx Last Taken Unknown] famotidine 40 mg tablet 40 mg PO DAILY #14 tabs 04/10/23 [Rx Last Taken Unknown] Allergy/AdvReac Type Severity Reaction Status Date / Time No Known Allergies Allergy Verified 04/10/23 10:11 Family History Other Arthritis CVA (cerebral vascular accident) Diabetes FH: defects Heart disease High cholesterol Hypertension Liver disease Myocardial infarction Surgical History History of tonsillectomy Social History Smoking Status: Former smoker alcohol intake: never what type of physical activity do you participate in: walking ROS ROS ED Constitutional Constitutional ED: Denies chills or fever(s) Eyes Eyes: Denies change in vision or discharge from eye(s) ENT ENT ED: Denies discharge from eye(s), rhinorrhea or sore throat Cardiovascular Cardiovascular: Denies chest pain or palpitations Respiratory/Chest Respiratory/Chest: Denies cough or dyspnea Gastrointestinal Gastrointestinal: Reports abdominal pain, diarrhea, nausea and vomiting Genitourinary Genitourinary ED: Denies dysuria Musculoskeletal Musculoskeletal: Denies back pain or extremity pain Integumentary Denies Abrasions or rash Neurologic Neurologic: Denies headache(s) or weakness Psychiatric Psychiatric: Denies anxiety or depression Allergic/Immunologic Allergic/Immunologic ED: Denies lip swelling or urticaria EXAM Physical Exam Const Vital Signs: 04/10/23 10:11 04/10/23 10:13 Temperature 96.6 F L Temperature Source Temporal Pulse Rate 102 H Respiratory Rate 18 Blood Pressure 133/99 H Blood Pressure Mean 110 Pulse Ox 98 Oxygen Delivery Method Room Air Positive well nourished and well developed General Appearance ED: well developed HEENT Reports normocephalic and head/scalp atraumatic Eyes PERRL and EOMs intact bilaterally Neck supple Chest Wall inspection of chest normal and palpation of chest normal Resp normal respiratory effort and clear to auscultation bilaterally Cardio regular rate and regular rhythm GI normal to inspection, nondistended, normoactive bowel sounds Palpation: soft Extremity normal to inspection Neuro oriented x3 and no sensory deficits noted Sensorium / Orientation: alert Motor Exam: strength 5/5 throughout Psych mental status grossly normal Skin no rashes or lesions noted MDM MDM MDM Narrative Medical decision making narrative: Patient given IV fluids. Labwork obtained to evaluate for leukocytosis, anemia, and electrolyte derangement. Urinalysis obtained to evaluate for infection/hematuria. Stool studies sent. Lab Data Attestation: I reviewed the patient's lab results. Labs: Laboratory Results - last 24 hr 04/10/23 04/10/23 04/10/23 10:40 10:45 11:24 WBC 9.9 RBC 5.62 Hgb 15.4 Hct 45.9 MCV 81.7 MCH 27.4 MCHC 33.6 RDW Std Deviation 37.9 RDW Coeff of Shashank 12.9 Plt Count 331 MPV 8.8 Immature Gran % (Auto) 0.300 Neut % (Auto) 72.1 H Lymph % (Auto) 17.6 L [place] % (Auto) 7.3 Eos % (Auto) 2.0 Baso % (Auto) 0.7 Absolute Neuts (auto) 7.1 Absolute Lymphs (auto) 1.74 Nucleated RBC % 0 Sodium 138 Potassium 4.0 Chloride 111 H Carbon Dioxide 21.0 Anion Gap 6 BUN 16 Creatinine 1.16 Estim Creat Clear Calc 97.37 Est GFR (MDRD) Af Amer 94 Est GFR (MDRD) Non-Af 77 BUN/Creatinine Ratio 13.8 Glucose 97 Calcium 9.0 Total Bilirubin 0.60 Direct Bilirubin 0.13 AST 19 ALT 32 Alkaline Phosphatase 113 Total Protein 8.1 Albumin 3.8 Globulin 4.3 H Urine Color Yellow Urine Clarity Clear Urine pH 5.0 Ur Specific [place] 1.025 Urine Protein 30 H Urine Glucose (UA) Normal Urine Ketones Negative Urine Occult Blood Negative Urine Nitrite Negative Urine Bilirubin Negative Urine Urobilinogen Normal Ur Leukocyte Esterase Negative Urine RBC 0 SEEN Urine WBC 0 SEEN Ur Squamous Epith Cells 0 SEEN Urine Bacteria 0 SEEN Urine Mucus 0 SEEN Treatment and Re-Evaluation :: CBC and chemistry studies are unremarkable. LFTs normal. Urinalysis reveals no evidence of infection. 30 protein is noted. Stool studies have been sent. Fecal leuks are positive but the remainder of the test are pending. Will be checked with lab they said will be another 2 hours until these are resulted. Rather than make the patient wait in the emergency room, he will be discharged home. If there is anything abnormal on his stool studies that requires treatment he will be called. At this point differential diagnosis includes C. difficile which I do not believe he has given his normal white count. He may have food poisoning as he did eat something Wednesday night that did not taste right and then shortly after developed symptoms. This is likely exacerbated by the MiraLAX and stool softeners that he had taken. Patient is comfortable with the plan. He will continue supportive care at home. Discharge Plan Triage Chief Complaint: Diarrhea Other Complaint: Abd Pain ED Provider: Nisha Douglass Dx/Rx/DC Orders Clinical Impression: Diarrhea Instructions: ED Diarrhea, Unknown Cause Prescriptions: No Action lisinopril-hydrochlorothiazide 20-25 mg tablet 1 tab PO DAILY sildenafil 25 mg tablet 25 mg PO DAILY PRN (Reason: sexual activity) Qty: 30 1RF Rx Instructions: administer 30 minutes to 4 hours before activity tirzepatide 7.5 mg/0.5 mL pen injector 7.5 mg subcut QWEEK Qty: 2 3RF famotidine 40 mg tablet 40 mg PO DAILY Qty: 14 0RF Primary Care Provider: Chad Joyce NP Referrals: Chad Joyce NP, [facility]ENN[facility] MA[facility]GER-[facility] [Primary Care Provider] - 3-5 Days if not improving Activity Restrictions/Additional Instructions: As discussed, if your stool studies reveal an infection that requires further treatment, you will be contacted. Disposition Disposition: Home, Self Care
[2023-04-10] MEDS: 0.9% Normal Saline 1,000 ML 1000 ML IV (10:44)
[2023-04-10 11:07] LABS: AST(SGOT) 19 U/L (15-37); Alanine Aminotransfer ALT/SGPT 32 U/L (16-61); Albumin, Serum 3.8 g/dL (3.2-5.0); Alkaline Phosphatase 113 U/L (45-117); Anion Gap 6 (5-15); BUN 16 mg/dL (7-18); BUN/Creat Ratio 13.8 RATIO (10-20); Bilirubin, Direct 0.13 mg/dL (0.00-0.30); Chloride 111 mmol/L (98-107); Creatinine, Serum 1.16 mg/dL (0.70-1.30); EST Glomerular Filtration Rate 77 mL/min (>60); Est Glom Filt Rate - Afr Amer 94 mL/min (>60); Estimated Creatinine Clearance 97.37 ml/min; Globulin 4.3 g/dL (2.2-4.2); Glucose 97 mg/dL (74-106); Protein, Total 8.1 g/dL (6.4-8.2); Sodium Level 138 mmol/L (136-145)
[2023-04-10 11:38] LABS: Bacteria 0 SEEN /hpf (None Seen); Mucous, Urine 0 SEEN /hpf (<or=2+); Red Blood Cells-Urine 0 SEEN /hpf (0-5); Squamous Epithelial Cells - UA 0 SEEN /hpf (0-5); White Blood Cells 0 SEEN /hpf (0-5)
[2023-04-10 11:41] LABS: Color, Urine Yellow (Yellow); Glucose, Dipstick Normal (Normal); Ketone-Dipstick Negative (Negative); Leukocyte Esterase-Dipstick Negative /ul (Negative); Nitrite-Dipstick Negative (Negative); Occult Blood-Urine Negative /ul (Negative); Protein-Dipstick 30 mg/dl (Negative); Specific Gravity, Urine 1.025 (1.002-1.030); Urine Bilirubin Dipstick Negative (Negative); Urine Clarity Clear (Clear); Urine Urobilinogen Normal (Normal)
[2023-04-10 11:54] LABS: Absolute Lymphocyte Count 1.74 X10^3/uL (0.83-4.51); Absolute Neutrophil Count 7.1 X10^3/uL (2.0-7.7); Basophil# 0.07 X10^3/uL; Basophil% 0.7 % (0-1); Hematocrit 45.9 % (40-54); Hemoglobin 15.4 g/dL (13.0-16.5); Lymphocyte # 1.74 X10^3/ul (0.83-4.51); Lymphocyte % 17.6 % (19-41); Mean Corp Hgb Conc 33.6 g/dL (32-36); Mean Corpuscular Hgb 27.4 pg (27.0-32.0); Mean Corpuscular Volume 81.7 fL (80-94); Mean Platelet Vol. 8.8 fl (6.2-12.0); Monocyte# 0.72 X10^3/uL; Monocyte% 7.3 % (0-10); NRBC Flagged by Analyzer 0 % (0-5); Neutrophil # 7.12 X10^3/uL (2.7-7.7); Neutrophil % 72.1 % (47-70); Platelet Count 331 K/mm3 (150-450); RBC Distribution Width CV 12.9 % (11.6-14.6); RBC Distribution Width SD 37.9 fl (35.1-43.9); Red Blood Count 5.62 M/mm3 (4.6-6.2); White Blood Count 9.9 K/mm3 (4.4-11.0)
[2023-04-10] MEDS: 0.9% Normal Saline 1,000 ML 150 ML IV (12:55)
== END 2023-04-10 13:22 | disposition home or self-care (01) ==
PROVIDERS: Emergency Provider Emergency Medicine; PCP Nurse Practitioner Family; Visit Provider Emergency Medicine
DX: R19.7 Diarrhea, unspecified (principal); R10.9 Unspecified abdominal pain; Z87.891 Personal history of nicotine dependence; I10 Essential (primary) hypertension; Z79.899 Other long term (current) drug therapy; N52.9 Male erectile dysfunction, unspecified; Z79.85 Long-term (current) use of injectable non-insulin antidiabetic drugs
CPT/HCPCS: 80048; 80076; 81001; 83630; 85025; 87177; 87209; 87493; 87506; 96360; 96361; 99283; J7030; A4216